=== PATIENT | male | born 1955 ===

== ENCOUNTER 2017-02-11 10:50 | Emergency (ER) | payer OTHER ==
[2017-02-11 10:55] VITALS: TEMP 98.3
--- NOTE | 2017-02-11 12:25 | C.PDOC ---
History Of Present Illness 61 y/o male presents to the ED with complaints of pain to right leg for 1 week. Pt states pain onset at the ankle and also noticed swelling. Pain now worse and is traveling up the calf. Pt seen in clinic and had XRay outpatient, told has arthritis. Pt reports taking ibuprofen 400 mg twice daily. Pain persists and is worse with walking. Pt admits to recent change in shoes, his job requires a lot of walking and stair climbing. Denies fever, chills, SOB, chest pain, weakness, numbness or any other complaints. Time Seen by Provider: 02/11/17 11:12 Chief Complaint (Nursing): Lower Extremity Problem/Injury History Per: Patient History/Exam Limitations: no limitations Onset/Duration Of Symptoms: Days Current Symptoms Are (Timing): Worse Severity: Moderate Recent travel outside of the [place]: No Past Medical History Reviewed: Historical Data, Nursing Documentation, Vital Signs Vital Signs: Last Vital Signs Temp 98.3 F 02/11/17 10:54 Pulse 56 L 02/11/17 12:48 Resp 16 02/11/17 12:48 BP 115/68 02/11/17 12:48 Pulse Ox 99 02/11/17 12:48 - Medical History PMH: No Chronic Diseases Surgical History: No Surg Hx Family History: States: Unknown Family Hx - Social History Hx Alcohol Use: No Hx Substance Use: No - Immunization History Hx Tetanus Toxoid Vaccination: No Hx Influenza Vaccination: No Hx Pneumococcal Vaccination: No Review Of Systems Constitutional: Negative for: Fever, Chills Cardiovascular: Negative for: Chest Pain Respiratory: Negative for: Shortness of Breath Musculoskeletal: Positive for: Other (pain and swelling to right lower leg) Neurological: Negative for: Weakness, Numbness Physical Exam - Physical Exam Appears: Non-toxic, No Acute Distress Skin: Warm, Dry, No Rash Head: Atraumatic, Normacephalic Eye(s): bilateral: Normal Inspection Neck: Normal ROM Chest: Symmetrical Cardiovascular: Rhythm Regular, No Murmur Respiratory: Normal Breath Sounds, No Rales, No Rhonchi, No Wheezing Extremity: Normal ROM, Tenderness (right lateral ankle and posterior calf; no foot tenderness), Calf Tenderness (right leg), Capillary Refill (<2 seconds), No Deformity, Swelling (left leg mild swelling to ankle; right leg with more swelling to midcalf extending to the ankle), Other (Induration to posterior right calf. No erythema or ulcers.) Pulses: Left Dorsalis Pedis: Normal, Right Dorsalis Pedis: Normal Neurological/Psych: Oriented x3, Normal Speech, Normal Motor, Normal Sensation Gait: Steady ED Course And Treatment O2 Sat by Pulse Oximetry: 100 (room air) Pulse Ox Interpretation: Normal Medical Decision Making Medical Decision Making: Pt declined pain medication Plan: * doppler Xray of foot and ankle from 02/07 shows No fracture.Mild talonavicular osteoarthritis. Innumerable dystrophic appearing soft tissue calcifications - a dermatomyositis versus parasite type infection. 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 Talonavicular arthrosis.Blending subcortical cystic changes and/or arthro pathic cystic ankylosis -metatarsal bases (L3-4 and L4-5). Venous doppler result was negative for DVT or other abnormality. Patient remained well in no distress. Explain results to patient and advise follow up with clinic. Disposition Counseled Patient/Family Regarding: Diagnosis, Need For Followup, Rx Given - Disposition Disposition: HOME/ ROUTINE Disposition Time: 12:41 Condition: STABLE Additional Instructions: Rahman ultrasonido fue normal, no hubo cogulos ni anomalas Stephen X muestra artritis Por favor, siga en la cl[facility] [place] medicamentos para el dolor cuando sea necesario Prescriptions: traMADol [Ultram] 50 mg PO Q8 #20 tab Instructions: Leg Pain (ED) Forms: Work Excuse Print Language: TURKISH - POA Present On Arrival: None - Clinical Impression Clinical Impression: Arthritis, Right leg pain - PA / TELEPHONY ENGINEER / Resident Statement MD/DO has reviewed & agrees with the documentation as recorded. - Scribe Statement The provider has reviewed the documentation as recorded by the Marlin Bobby All medical record entries made by the Mralin were at my direction and personally dictated by me. I have reviewed the chart and agree that the record accurately reflects my personal performance of the history, physical exam, medical decision making, and the department course for this patient. I have also personally directed, reviewed, and agree with the discharge instructions and disposition.
[2017-02-11 12:49] VITALS: BP 115/68; PULSE 56; RESP 16
[2017-02-11 15:04] VITALS: O2SAT 100
--- NOTE | 2017-02-14 13:15 | VASCLAB ---
PROCEDURE: Right Lower Extremity Venous Duplex Exam. HISTORY: leg swelling and pain calf to ankle PRIORS: None. TECHNIQUE: Right common femoral, femoral, popliteal and posterior tibial, peroneal and great saphenous veins were evaluated. Flow was assessed with color Doppler, compressibility, assessment of phasic flow and augmentation response. Report prepared by MALIK Vargas, RVT FINDINGS: RIGHT: 1. Common Femoral Vein: 1.1. Compressibility - Fully compressible: Thrombus - None: Flow - Phasic: Augmentation -Normal: Reflux - None. 2. Femoral Vein: 2.1. Compressibility - Fully compressible: Thrombus - None: Flow - Phasic: Augmentation -Normal: Reflux - None. 3. Popliteal Vein: 3.1. Compressibility - Fully compressible: Thrombus - None: Flow - Phasic: Augmentation -Normal: Reflux - Severe. 4. Posterior Tibial Vein: 4.1. Compressibility - Fully compressible: Thrombus - None: Flow - Phasic: Augmentation -Normal: Reflux - None. 5. Peroneal Vein: 5.1. Compressibility - Fully compressible: Thrombus - None: Flow - Phasic: Augmentation -Normal: Reflux - None. 6. Great Saphenous Vein: 6.1. Compressibility - Fully compressible: Thrombus -None: Flow - Phasic: Augmentation - Normal: Reflux - Severe. OTHER FINDINGS: Severe valvular incompetence of the right popliteal and greater saphenous veins. IMPRESSION: No evidence of deep or superficial vein thrombosis of the right lower extremity with excellent venous flow. Normal venous flow noted in the left common femoral vein.
== END 2017-02-11 12:48 | disposition home or self-care (01) ==
LOC: C.ER 10:50
DX: M13.88 Other specified arthritis, other site (principal); M79.604 Pain in right leg

== ENCOUNTER 2017-02-24 10:09 | Emergency (ER) | payer OTHER ==
[2017-02-24 10:14] VITALS: O2SAT 100
--- NOTE | 2017-02-24 13:02 | C.PDOC ---
History Of Present Illness 61 y/o male presents to the ED with complaints of right ankle pain and swelling for the past several days. Pt denies injury. He was seen in ED on 02/11 for same with negative venous duplex. Pt seen in podiatry clinic multiple times, last visit was given Rx for antibiotics which he started yesterday; next appointment on 02/28/17. Pain now worse. Pt states his right leg feels heavy making it difficult to walk. Denies fever, chills, weakness, numbness or any other complaints. Time Seen by Provider: 02/24/17 11:24 Chief Complaint (Nursing): Lower Extremity Problem/Injury History Per: Patient History/Exam Limitations: no limitations Onset/Duration Of Symptoms: Days Current Symptoms Are (Timing): Worse Severity: Moderate Recent travel outside of the [place]: No Past Medical History Reviewed: Historical Data, Nursing Documentation, Vital Signs Vital Signs: Last Vital Signs Temp 98.0 F 02/24/17 13:50 Pulse 60 02/24/17 13:50 Resp 16 02/24/17 13:50 BP 116/72 02/24/17 13:50 Pulse Ox 100 02/24/17 14:08 - Medical History PMH: Denies: Chronic Kidney Disease Family History: States: Unknown Family Hx - Social History Hx Alcohol Use: No Hx Substance Use: No - Immunization History Hx Tetanus Toxoid Vaccination: No Hx Influenza Vaccination: No Hx Pneumococcal Vaccination: No Review Of Systems Constitutional: Negative for: Fever, Chills Musculoskeletal: Positive for: Other (right ankle pain and swelling, right leg heaviness) Neurological: Negative for: Weakness, Numbness Physical Exam - Physical Exam Appears: Non-toxic, No Acute Distress Skin: Warm, Dry, No Rash Head: Atraumatic, Normacephalic Chest: Symmetrical Cardiovascular: Rhythm Regular, No Murmur Respiratory: Normal Breath Sounds, No Rales, No Rhonchi, No Wheezing Extremity: Normal ROM, Tenderness (right calf and ankle tenderness), Capillary Refill (<2 seconds), No Deformity, Swelling (right ankle swelling), Other (Dark discoloration to right leg with scaling, warm to touch.) Pulses: Left Dorsalis Pedis: Normal, Right Dorsalis Pedis: Normal Neurological/Psych: Oriented x3, Normal Speech, Normal Cognition, Normal Motor, Normal Sensation ED Course And Treatment - Laboratory Results Result Diagrams: 02/24/17 13:02 02/24/17 13:02 O2 Sat by Pulse Oximetry: 100 (room air) Pulse Ox Interpretation: Normal Progress Note: Podiatry resident Mariana Up called for consult. Evaluated pt at bedside and discussed case with their attending Dr Artis, requesting venous duplex and blood work. If WBC elevated, will give IV abx. Resident applied Augustin dressing and instructed patient to follow up in podiatry clinic on tuesday , 02/28. Venous duplex negative for DVT. WBCs WNL. Disposition - Disposition Disposition: HOME/ ROUTINE Disposition Time: 14:06 Condition: STABLE Additional Instructions: Follow up in Podiatry clinic within 1-2 days. Return to Ed if feel worse. Prescriptions: Methylprednisolone [Medrol] 4 mg PO DAILY #42 tab Ibuprofen [Motrin Tab] 600 mg PO Q8 #30 tab Famotidine [Pepcid] 20 mg PO BID #20 tab Instructions: Swollen Ankle Joint (ED) Forms: [employer] (Kosovan) - Clinical Impression Clinical Impression: Arthritis - PA / MAINTENANCE CLERK / Resident Statement MD/DO has reviewed & agrees with the documentation as recorded. - Scribe Statement The provider has reviewed the documentation as recorded by the Scribovidio bhakta All medical record entries made by the Marlin were at my direction and personally dictated by me. I have reviewed the chart and agree that the record accurately reflects my personal performance of the history, physical exam, medical decision making, and the department course for this patient. I have also personally directed, reviewed, and agree with the discharge instructions and disposition.
--- NOTE | 2017-02-24 13:14 | CP.PCM.CON ---
History of Present Illness - History of Present Illness History of Present Illness: 61 y/o male with no known pmhx seen at bedside in the ED for right ankle and leg pain. patient states that he sees Dr. Artis in podiatry clinic at [facility] and was just there this past tuesday. Patient states that he was given keflex that he took this morning. Patient denies taking any pain medication but states his pain is a 10/10 and he cannot walk on his right lower extremity. Patient has another appt. in the podiatry clinic next tuesday but states that hte pain is too unbearable so he came to the ED. patient denies any recent trauma or changes in activities of daily living. Patient denies any other pedal complaints at this time. Review of Systems - Constitutional Constitutional: As Per HPI Past Patient History - Infectious Disease Hx of Infectious Diseases: None - Past Social History Smoking Status: Never Smoked - CARDIAC Hx Cardiac Disorders: No - PULMONARY Hx Respiratory Disorders: No - NEUROLOGICAL Hx Neurological Disorder: No - HEENT Hx HEENT Problems: No - RENAL Hx Chronic Kidney Disease: No - ENDOCRINE/METABOLIC Hx Endocrine Disorders: No - HEMATOLOGICAL/ONCOLOGICAL Hx Blood Disorders: No Hx Blood Transfusions: No - INTEGUMENTARY Hx Dermatological Problems: Yes Other/Comment: BLE W/STASIS ULCER/DRY SCALES/DISCOLORATION - MUSCULOSKELETAL/RHEUMATOLOGICAL Hx Musculoskeletal Disorders: No Hx Falls: No - GASTROINTESTINAL Hx Gastrointestinal Disorders: No - GENITOURINARY/GYNECOLOGICAL Hx Genitourinary Disorders: No - PSYCHIATRIC Hx Substance Use: No - SURGICAL HISTORY Hx Surgeries: No - ANESTHESIA Hx Anesthesia: No Hx Anesthesia Reactions: No Meds Home Medications: Home Medication List Medication Instructions Recorded Confirmed Type Famotidine [Pepcid] 20 mg PO BID #20 tab 02/24/17 Rx Ibuprofen [Motrin Tab] 600 mg PO Q8 #30 tab 02/24/17 Rx Methylprednisolone [Medrol] 4 mg PO DAILY #42 tab 02/24/17 Rx Allergies/Adverse Reactions: Allergies Allergy/AdvReac Type Severity Reaction Status Date / Time No Known Allergies Allergy Verified 02/24/17 10:14 Physical Exam - Constitutional Appears: Well, Non-toxic - Extremities Exam Additional comments: right lower extremity focused: Vasc: lightly palpable pedal pulses, TG warm to cool, CFT < 4 sec to all digits , nonpitting edema diffuse neuro: grossly intact derm: nonpitting edema, erythema noted to posterior calf extending proximally to tibial tuberosity, no open lesions, diffuse xerosos posterior leg, no open lesions, no hyperkeratotic lesions ortho: severe pain on palpation of anterior ankle, muscle power limited 4/5, ankle ROM diminished, pain on palpation of posterior calf Results - Vital Signs Recent Vital Signs: Last Vital Signs Temp 98.5 F 02/24/17 10:12 Pulse 70 02/24/17 10:12 Resp 20 02/24/17 10:12 BP 103/68 02/24/17 10:12 Pulse Ox 100 02/24/17 13:07 - Labs Result Diagrams: 02/24/17 13:02 02/24/17 13:02 Assessment & Plan - Assessment and Plan (Free Text) Assessment: 61 y/o male seen at bedside in the ED for right ankle/leg pain and swelling Plan: patient evaluated and chart reviewed discussed in detail with attending Dr. Artis labs and vitals reviewed; afebrile, WBC 5.5 Duplex US negative for DVT X rays of right ankle show possible dermatomyositis, talonavicular jt. arthritis , no fracture or dislocation Rx Medrol dose pack applied napier compression using webril, JALIL to RLE patient to cont. taking abx patient instructed to follow up in podiatry clinic on 02/28/17
[2017-02-24 13:29] LABS: BASO % 0.6 % (0.0-2.0); EOS # 0.2 K/uL (0.0-0.7); EOS % 3.1 % (0.0-4.0); HEMATOCRIT 38.7 % (35.0-51.0); LYMPH # 1.7 K/uL (1.0-4.3); LYMPH % 30.4 % (20.0-40.0); MEAN CELL VOLUME 78.3 fL (80.0-94.0); MEAN CORPUSCULAR HEMOGLOBIN 24.9 pg (27.0-31.0); MEAN CORPUSCULAR HGB CONC 31.8 g/dL (33.0-37.0); MEAN PLATELET VOLUME 9.4 fL (7.2-11.7); MONO # 0.6 K/uL (0.0-0.8); MONO % 10.8 % (0.0-10.0); NRBC % 0.1 % (0.0-2.0); RED CELL DISTRIBUTION WIDTH 14.7 % (11.5-14.5); WHITE BLOOD COUNT 5.5 K/uL (4.8-10.8)
[2017-02-24 13:36] LABS: INR 1.1
[2017-02-24 13:41] LABS: CHLORIDE 99 mmol/L (98-107); POTASSIUM 4.5 mmol/L (3.6-5.2); SODIUM 142 mmol/L (132-148)
[2017-02-24 13:44] LABS: ALKALINE PHOSPHATASE 90 U/L (38-126); ALT/SGPT 21 U/L (21-72); AST/SGOT 27 U/L (17-59); BILIRUBIN,TOTAL 0.5 mg/dL (0.2-1.3); BLOOD UREA NITROGEN 13 mg/dL (9-20); CARBON DIOXIDE 29 mmol/L (22-30); GFR AFRICAN-AMERICAN > 60; GLUCOSE,RANDOM 90 mg/dL (75-110); TOTAL PROTEIN 7.9 g/dL (6.3-8.3)
[2017-02-24 13:45] LABS: CALCIUM 9.3 mg/dl (8.6-10.4)
[2017-02-24 13:56] VITALS: BP 116/72; PULSE 60; RESP 16; TEMP 98
--- NOTE | 2017-02-24 15:34 | VASCLAB ---
PROCEDURE: Right Lower Extremity Venous Duplex Exam. HISTORY: pain/swelling PRIORS: None. TECHNIQUE: Right common femoral, femoral, popliteal and posterior tibial, peroneal and great saphenous veins were evaluated. Flow was assessed with color Doppler, compressibility, assessment of phasic flow and augmentation response. Report prepared by MALIK Vargas, RVT FINDINGS: RIGHT: 1. Common Femoral Vein: 1.1. Compressibility - Fully compressible: Thrombus - None: Flow - Phasic: Augmentation -Normal: Reflux - None. 2. Femoral Vein: 2.1. Compressibility - Fully compressible: Thrombus - None: Flow - Phasic: Augmentation -Normal: Reflux - None. 3. Popliteal Vein: 3.1. Compressibility - Fully compressible: Thrombus - None: Flow - Phasic: Augmentation -Normal: Reflux - None. 4. Posterior Tibial Vein: 4.1. Compressibility - Fully compressible: Thrombus - None: Flow - Phasic: Augmentation -Normal: Reflux - None. 5. Peroneal Vein: 5.1. Compressibility - Fully compressible: Thrombus - None: Flow - Phasic: Augmentation -Normal: Reflux - None. 6. Great Saphenous Vein: 6.1. Compressibility - Fully compressible: Thrombus -None: Flow - Phasic: Augmentation - Normal: Reflux - Severe. OTHER FINDINGS: Severe valvular incompetence of the right greater saphenous vein. IMPRESSION: No evidence of deep or superficial vein thrombosis of the right lower extremity with excellent venous flow. Normal venous flow noted in the left common femoral vein.
== END 2017-02-24 14:15 | disposition home or self-care (01) ==
LOC: C.ER 10:09
DX: M25.571 Pain in right ankle and joints of right foot (principal); R22.41 Localized swelling, mass and lump, right lower limb

== ENCOUNTER 2017-08-21 13:57 | Emergency (ER) | payer SELFPAY ==
[2017-08-21 13:57] VITALS: BMI 37.7
--- NOTE | 2017-08-21 14:40 | C.PDOC ---
History Of Present Illness 62 year old male with no significant PMHx presents to the ED with complaints of flu-like symptoms for 2 days that include subjective fever, sore throat, and generalized body aches. Patient denies abdominal pain, nausea, vomiting, diarrhea, ear pain, cough, or other complaints at this time. Time Seen by Provider: 08/21/17 14:16 Chief Complaint (Nursing): Flu-like Symptoms History Per: Patient History/Exam Limitations: no limitations Onset/Duration Of Symptoms: Days (2 days ) Current Symptoms Are (Timing): Still Present Location Of Pain: Throat, Diffuse Myalgias Sick Contacts (Context): None Associated Symptoms: Fever, Sore Throat, Myalgias. denies: Chills, Cough, Vomiting, Diarrhea Ear Symptoms: Bilateral: None Recent travel outside of the [place]: No Past Medical History Reviewed: Historical Data, Nursing Documentation, Vital Signs Vital Signs: Last Vital Signs Temp 98.2 F 08/21/17 14:57 Pulse 66 08/21/17 14:57 Resp 16 08/21/17 14:57 BP 118/66 08/21/17 14:57 Pulse Ox 95 08/21/17 15:30 - Medical History PMH: Family History: States: Unknown Family Hx - Social History Hx Alcohol Use: No Hx Substance Use: No - Immunization History Hx Tetanus Toxoid Vaccination: No Hx Influenza Vaccination: No Hx Pneumococcal Vaccination: No Review Of Systems Constitutional: Positive for: Fever, Other (generalized body aches). Negative for: Chills ENT: Positive for: Throat Pain Respiratory: Negative for: Cough, Shortness of Breath Gastrointestinal: Negative for: Vomiting, Diarrhea Physical Exam - Physical Exam Appears: Non-toxic, No Acute Distress Skin: Warm, Dry, No Rash Eye(s): bilateral: Normal Inspection, PERRL, EOMI Ear(s): Bilateral: Normal Nose: Normal, No Discharge Oral Mucosa: Moist Throat: Erythema (mild erythema of pharynx ), No Exudate Neck: Supple Cardiovascular: Rhythm Regular, No Murmur Respiratory: No Rales, No Rhonchi, No Wheezing, Other (clear to ausculation bilaterally ) Gastrointestinal/Abdominal: Soft, No Tenderness, No Distention, No Guarding, No Rebound Neurological/Psych: Oriented x3 ED Course And Treatment O2 Sat by Pulse Oximetry: 95 (RA) Pulse Ox Interpretation: Normal Progress Note: Flu swab and rapid strep were ordered. Medical Decision Making Medical Decision Making: influenza pos. will treat. vital stable. pt well apeparing in nad Disposition - Disposition Disposition: HOME/ ROUTINE Disposition Time: 15:25 Condition: STABLE Additional Instructions: please follow up with your doctor. return to er with worsening symptoms or concerns. Prescriptions: Oseltamivir Phosphate [Tamiflu] 75 mg PO BID #10 capsule Instructions: Influenza (ED) Forms: [facility] (Peruvian) - Clinical Impression Clinical Impression: Influenza - Scribe Statement The provider has reviewed the documentation as recorded by the Scribe Netite Chin All medical record entries made by the Scribe were at my direction and personally dictated by me. I have reviewed the chart and agree that the record accurately reflects my personal performance of the history, physical exam, medical decision making, and the department course for this patient. I have also personally directed, reviewed, and agree with the discharge instructions and disposition.
[2017-08-21 14:49] LABS: INFLUENZA A B POS FOR INFLUENZA A (NEGATIVE)
[2017-08-21 14:57] VITALS: BP 118/66; PULSE 66; RESP 16; TEMP 98.2
[2017-08-21 15:30] VITALS: O2SAT 95
== END 2017-08-21 15:31 | disposition home or self-care (01) ==
LOC: C.ER 13:57
DX: J11.1 Influenza due to unidentified influenza virus with other respiratory manifestations (principal)

== ENCOUNTER 2018-01-18 07:00 | Emergency (ER) | payer SELFPAY ==
[2018-01-18 07:00] VITALS: BMI 37.7
[2018-01-18 07:08] VITALS: TEMP 98.1; O2SAT 99
[2018-01-18] MEDS ORDERED: Naproxen 550 mg Tab PO STA (07:33)
[2018-01-18] MEDS ORDERED: Naproxen 550 mg Tab PO ONE (07:38)
--- NOTE | 2018-01-18 07:44 | C.PDOC ---
History Of Present Illness 62 y/o male presents to ED with c/o of pain to back of left knee for "several days" worse with bending. 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 Patient has taken Ibuprofen with mild relief, did not take any today because he decided to come to ED for further evaluation. Patient denies direct injury, leg swelling, rash, numbness, weakness or any other complaints at this time. Time Seen by Provider: 01/18/18 07:15 Chief Complaint (Nursing): Lower Extremity Problem/Injury History Per: Patient History/Exam Limitations: no limitations Onset/Duration Of Symptoms: Days Current Symptoms Are (Timing): Still Present Recent travel outside of the [place]: No Past Medical History Reviewed: Historical Data, Nursing Documentation, Vital Signs Vital Signs: Last Vital Signs Temp 98.1 F 01/18/18 07:05 Pulse 60 01/18/18 09:01 Resp 18 01/18/18 09:01 BP 124/72 01/18/18 09:01 Pulse Ox 99 01/18/18 09:01 - Medical History PMH: No Chronic Diseases Surgical History: No Surg Hx Family History: States: No Known Family Hx - Social History Hx Alcohol Use: No Hx Substance Use: No - Immunization History Hx Tetanus Toxoid Vaccination: No Hx Influenza Vaccination: No Hx Pneumococcal Vaccination: No Review Of Systems Except As Marked, All Systems Reviewed And Found Negative. Constitutional: Negative for: Fever, Chills Musculoskeletal: Positive for: Leg Pain Skin: Negative for: Rash Neurological: Negative for: Weakness, Numbness Physical Exam - Physical Exam Appears: Non-toxic, No Acute Distress Skin: Warm, Dry, No Rash Head: Atraumatic, Normacephalic Eye(s): bilateral: Normal Inspection, PERRL, EOMI Oral Mucosa: Moist Neck: Normal ROM, Supple Cardiovascular: Rhythm Regular, No Friction Rub, No Murmur Respiratory: Normal Breath Sounds, No Rales, No Rhonchi, No Wheezing Gastrointestinal/Abdominal: Bowel Sounds (active), Soft, No Tenderness, No Guarding, No Rebound Back: Normal Inspection, No CVA Tenderness Extremity: Normal ROM, No Pedal Edema, Capillary Refill (<2 seconds), No Deformity, No Swelling Neurological/Psych: Oriented x3, Normal Speech, Normal Motor, Normal Sensation Gait: Steady ED Course And Treatment O2 Sat by Pulse Oximetry: 99 (RA) Pulse Ox Interpretation: Normal Medical Decision Making Medical Decision Making: Xrays are negative for fracture or dislocation. On re-exam, the patient was ambulatory in the ED with steady gait. Disposition - Disposition Referrals: John George MD [Staff Provider] - Disposition: HOME/ ROUTINE Disposition Time: 08:54 Condition: GOOD Additional Instructions: Follow up with the medical doctor within 1-2 days. Return if worsened. 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 - Scribe Statement The provider has reviewed the documentation as recorded by the Scribovidio Castaneda All medical record entries made by the Scribe were at my direction and personally dictated by me. I have reviewed the chart and agree that the record accurately reflects my personal performance of the history, physical exam, medical decision making, and the department course for this patient. I have also personally directed, reviewed, and agree with the discharge instructions and disposition.
--- NOTE | 2018-01-18 07:51 | C.PDOC ---
Time Seen by Provider: 01/18/18 07:15 Chief Complaint (Nursing): Lower Extremity Problem/Injury Past Medical History Vital Signs: Last Vital Signs Temp 98.1 F 01/18/18 07:05 Pulse 61 01/18/18 07:05 Resp 20 01/18/18 07:05 BP 116/66 01/18/18 07:05 Pulse Ox 99 01/18/18 07:05 - Medical History PMH: Family History: States: Unknown Family Hx - Social History Hx Alcohol Use: No Hx Substance Use: No - Immunization History Hx Tetanus Toxoid Vaccination: No Hx Influenza Vaccination: No Hx Pneumococcal Vaccination: No ED Course And Treatment O2 Sat by Pulse Oximetry: 99 Disposition - Disposition
[2018-01-18 09:02] VITALS: BP 124/72; PULSE 60; RESP 18
--- NOTE | 2018-01-18 10:01 | RAD ---
PROCEDURE: Left knee dated 01/18/2018 HISTORY: Pain. COMPARISON: Comparison made with prior radiographs 11/07/2014. FINDINGS: BONES: No evidence of acute displaced fracture nor dislocation. The osseous structures appear intact. JOINTS: Mild tricompartmental degenerative osteoarthritis. . Small patellar enthesophytes with small anterior tibial tubercle enthesophyte JOINT EFFUSION: Suspect trace suprapatellar joint effusion OTHER FINDINGS: None. IMPRESSION: No evidence of acute displaced fracture nor dislocation Mild DJD.
== END 2018-01-18 09:41 | disposition home or self-care (01) ==
LOC: C.ER 07:00
DX: M13.862 Other specified arthritis, left knee (principal); M25.562 Pain in left knee

== ENCOUNTER 2018-01-27 20:25 | Emergency (ER) | payer SELFPAY ==
[2018-01-27 20:26] VITALS: BMI 37.7
[2018-01-27 20:36] VITALS: BP 131/72; PULSE 83; RESP 14; TEMP 98.5; O2SAT 98
--- NOTE | 2018-01-27 21:10 | C.PDOC ---
History Of Present Illness 62 year old male presents to the ER with a complaint of pain to the back of the left knee since 12:00 today. Patient was seen in the ER on 01/18/18 for the same complaint, he states he has been taking the medication given at the time with relief, however, today while walking up the stairs at work he began to have a recurrence of the pain. Denies weakness, numbness, or trauma. Time Seen by Provider: 01/27/18 20:45 Chief Complaint (Nursing): Lower Extremity Problem/Injury History Per: Patient History/Exam Limitations: no limitations Onset/Duration Of Symptoms: Hrs Current Symptoms Are (Timing): Still Present Recent travel outside of the [place]: No Past Medical History Reviewed: Historical Data, Nursing Documentation, Vital Signs Vital Signs: Last Vital Signs Temp 98.5 F 01/27/18 20:33 Pulse 83 01/27/18 20:33 Resp 14 01/27/18 20:33 BP 131/72 01/27/18 20:33 Pulse Ox 98 01/27/18 21:13 - Medical History PMH: Family History: States: Unknown Family Hx - Social History Hx Alcohol Use: No Hx Substance Use: No - Immunization History Hx Tetanus Toxoid Vaccination: No Hx Influenza Vaccination: No Hx Pneumococcal Vaccination: No Review Of Systems Musculoskeletal: Positive for: Leg Pain Neurological: Negative for: Weakness, Numbness Physical Exam - Physical Exam Appears: Non-toxic Skin: Normal Color, Warm, Dry Head: Atraumatic, Normacephalic Eye(s): bilateral: Normal Inspection Extremity: Normal ROM (x4), Tenderness (Left lateral knee), No Calf Tenderness, Capillary Refill (<2 seconds), No Deformity Pulses: Left Dorsalis Pedis: Normal, Right Dorsalis Pedis: Normal Neurological/Psych: Oriented x3, Normal Speech, Normal Motor, Normal Sensation Gait: Steady ED Course And Treatment O2 Sat by Pulse Oximetry: 98 (Room air) Pulse Ox Interpretation: Normal Progress Note: Patient is ambulatory in the ER without any pain or difficulty, will place in knee brace for support and advise to follow up with ortho for further evaluation. Disposition Counseled Patient/Family Regarding: Diagnosis, Need For Followup - Disposition Referrals: John George MD [Staff Provider] - Disposition: HOME/ ROUTINE Disposition Time: 21:35 Condition: STABLE Additional Instructions: Please follow up with PMD Take naproxen as prescribed Use knee brace for support Return to ER if worse Instructions: Knee Pain (DC) Forms: [employer] [facility] (Urdu) - Clinical Impression Clinical Impression: Arthralgia of knee, left - PA / COMPENSATION ADVISOR / Resident Statement MD/DO has reviewed & agrees with the documentation as recorded. - Scribe Statement The provider has reviewed the documentation as recorded by the Scribe Levy Da Silva All medical record entries made by the Rahulibovidio were at my direction and personally dictated by me. I have reviewed the chart and agree that the record accurately reflects my personal performance of the history, physical exam, medical decision making, and the department course for this patient. I have also personally directed, reviewed, and agree with the discharge instructions and disposition.
== END 2018-01-27 21:47 | disposition home or self-care (01) ==
LOC: C.ER 20:25
DX: M25.562 Pain in left knee (principal)